=== PATIENT | female | born 1990 | race Caucasian/White ===

== ENCOUNTER 2017-10-11 15:42 | Outpatient (CLI) | payer OTHER ==
[2017-10-11] MEDS ORDERED: LACTATED RINGERS 500 ML IV ONE (16:07)
[2017-10-11 16:42] LABS: Hematocrit 33.1 % (30.3-42.9); Mean Corpuscular HGB Conc 33 % (30-34); Mean Corpuscular Hemoglobin 29 pg (28-32); Mean Corpuscular Volume 86 fl (79-97); Platelet Count 216 K/mm3 (140-440); Red Blood Count 3.85 M/mm3 (3.65-5.03); Red Cell Distribution Width 15.5 % (13.2-15.2)
[2017-10-11 16:43] LABS: Bilirubin,Urine NEG (Negative); Blood,Urine NEG (Negative); Calcium Oxalate Crystals,Urine 1+; Color,Urine Amber (Yellow); Mucus,Urine 3+ /HPF
[2017-10-11 16:58] LABS: Alanine Aminotransferase < 5 units/L (7-56)
[2017-10-11 17:30] VITALS: BP 115/80
== END 2017-10-11 18:00 | disposition home or self-care (01) ==
LOC: TRG 15:42
PROVIDERS: ATTEND Obstetrics & Gynecology
DX: O47.03 False labor before 37 completed weeks of gestation, third trimester (principal); Z3A.37 37 weeks gestation of pregnancy; Z88.0 Allergy status to penicillin; Z91.048 Other nonmedicinal substance allergy status
CPT/HCPCS: 36415; 59025; 81001; 82565; 83615; 84450; 84460; 84550; 85027

== ENCOUNTER 2017-10-13 22:15 | Emergency (ER) | payer OTHER ==
[2017-10-14] MEDS ORDERED: NACL 0.9% 1000 ML 1,000 ML IV ONE (00:10)
[2017-10-14] MEDS ORDERED: NORCO 5/325 PO ONE (00:10)
[2017-10-14 02:04] VITALS: BP 111/78
--- NOTE | 2017-10-14 03:05 | Emergency Department Report ---
HPI - General Chief Complaint: Headache Time Seen by Provider: 10/14/17 00:50 - HPI HPI: The patient is a 27-year-old female who presents for evaluation of toothache and headache. The patient reports right upper toothache for the past one week, achy in quality, moderate to severe, exacerbated with chewing and opening the mouth, and associated with a moderate in severity throbbing headache. The patient denies fever, head injury, facial swelling, neck pain, neck stiffness, throat pain, vision or hearing changes, smell or taste changes, paresthesias, facial drooping, slurred speech, seizure-like activity, urine or bowel incontinence or retention, or other focal neurological deficit. ED Past Medical Hx - Past Medical History Hx Hypertension: No Hx Diabetes: Yes Hx Deep Vein Thrombosis: No Hx Sickle Cell Disease: No Hx Seizures: Yes (as a child age 7) Hx Asthma: No Hx HIV: No - Social History Smoking Status: Never Smoker Substance Use Type: None - Medications Home Medications: Home Medications Medication Instructions Recorded Confirmed Last Taken Type Acetaminophen/Codeine [Tylenol #3] 1 tab PO Q6H PRN #5 tab 10/14/17 Unknown Rx cephALEXin [Keflex] 500 mg PO Q8HR 5 Days #15 cap 10/14/17 Unknown Rx ED Review of Systems ROS: Stated complaint: PAIN FACE/EAR/NECK Other details as noted in HPI Constitutional: denies: fever ENT: reports tooth pain denies: throat or neck pain Respiratory: denies: cough, shortness of breath Cardiovascular: denies: chest pain Endocrine: denies unexplained weight loss or gain Gastrointestinal: denies: abdominal pain, nausea Genitourinary: denies: dysuria Musculoskeletal: denies: leg swelling Skin: denies: rash Neurological: reports: headache Hematological/Lymphatic: denies: easy bleeding or easy bruising Psych: denies sadness or hopelessness Physical Exam - Physical Exam Vital Signs: Vital Signs 10/13/17 10/14/17 10/14/17 22:45 00:12 00:15 Temperature 98.3 F Pulse Rate 98 H 79 Respiratory 16 Rate Blood Pressure 109/80 99/69 Blood Pressure [Left] O2 Sat by Pulse 98 100 Oximetry 10/14/17 02:03 Temperature Pulse Rate 80 Respiratory 16 Rate Blood Pressure Blood Pressure 111/78 [Left] O2 Sat by Pulse 100 Oximetry Physical Exam: General: well-nourished, well-developed, no acute distress Head: Normocephalic, atraumatic Eyes: normal sclera ENT: Mucous membranes are pale and dry Neck: No neck stiffness, no cervical adenopathy Respiratory: Breath sounds equal bilaterally, no wheezing, rales, or rhonchi Cardio: S1 and S2 present, no murmurs, rubs, gallops, capillary refill is delayed Abdomen: Normoactive bowel sounds, soft abdomen, no rigidity, no guarding or rebound tenderness Chest WALL/Back: No tenderness to palpation of the chest wall, no CVA tenderness with percussion Musc: No pitting edema Skin: No rash Neuro: alert oriented x4, normal cognition, speech normal, PERRL, EOM intact, no facial drooping, no uvula or tongue deviation on protrusion, no deficit with rotation of neck or shoulder shrug, no obvious gross motor deficit in the upper or lower extremities with flexion or extension at the shoulder, elbow, wrist, hip, knee, or ankle bilaterally, no obvious gross sensation deficit to crude touch or 2 pt discrimination, 2+ symmetric reflexes on DTR testing, no coordination deficit with [id number] or [id number] testing, Babinski downgoing, romberg negative, patient able to to ambulate without abnormal gait Psych: Normal affect ED Course Vital Signs 10/13/17 10/14/17 10/14/17 22:45 00:12 00:15 Temperature 98.3 F Pulse Rate 98 H 79 Respiratory 16 Rate Blood Pressure 109/80 99/69 Blood Pressure [Left] O2 Sat by Pulse 98 100 Oximetry 10/14/17 02:03 Temperature Pulse Rate 80 Respiratory 16 Rate Blood Pressure Blood Pressure 111/78 [Left] O2 Sat by Pulse 100 Oximetry ED Medical Decision Making - Medical Decision Making The patient was seen and examined by myself. The patient is placed on a court recording monitor and continuous pulse ox. On initial evaluation, the patient was found to be in no distress. Evaluation orders were placed. As there are no neuro deficits or other findings on examination concerning for acute intracranial disease process, and as the patient states that symptoms are consistent with previous headaches, a CAT scan of the head will not be obtained at this time. The patient was given a tablet of Tylenol 3 for pain. The patient was reevaluated and reported that their symptoms were markedly improved. The patient is stable for discharge with outpatient follow-up. The patient is given follow-up and return instructions. The patient expressed understanding and agreed with the plan. The patient is discharged in stable condition. Critical care attestation.: If time is entered above; I have spent that time in minutes in the direct care of this critically ill patient, excluding procedure time. ED Disposition Clinical Impression: Acute non intractable tension-type headache, Toothache Disposition: TO HOME OR SELFCARE Is pt being admited?: No Does the pt Need Aspirin: No Condition: Stable Instructions: Acute Headache (ED), Toothache (ED) Prescriptions: Acetaminophen/Codeine [Tylenol #3] 1 tab PO Q6H PRN #5 tab PRN Reason: Pain cephALEXin [Keflex] 500 mg PO Q8HR 5 Days #15 cap Referrals: ROGER ALFONSO MD [Staff Physician] - 3-5 Days [facility] [Provider Group] - 3-5 Days Time of Disposition: 02:54
== END 2017-10-14 03:39 | disposition home or self-care (01) ==
LOC: ED 22:15
DX: G44.209 Tension-type headache, unspecified, not intractable (principal); K08.89 Other specified disorders of teeth and supporting structures; E11.9 Type 2 diabetes mellitus without complications; Z88.4 Allergy status to anesthetic agent; Z88.0 Allergy status to penicillin; Z91.09 Other allergy status, other than to drugs and biological substances
CPT/HCPCS: 99283

== ENCOUNTER 2017-10-18 09:39 | Outpatient (CLI) | payer OTHER ==
--- NOTE | 2017-10-18 10:59 | History and Physical Report ---
History of Present Illness Date of examination: 10/18/17 Chief complaint: Weakness of left side of her face since yesterday History of present illness: 27-year-old at 38+0 weeks presents with weakness of the right side of her face 24 hours now, no associated weakness of her extremities. She is a [employer] patient and care has been complicated by type 1 diabetes, migraine headaches status post negative CT scan head in the emergency room on , recent episode of bilateral ear infections. In triage, she is afebrile with normal blood pressure. Infant is category 1, no vaginal bleeding, no loss of fluid no contractions plus movement She is status post 2 prior C-sections Past History Past Medical History: diabetes, neurologic Past Surgical History: tonsillectomy, section (# 2) Social history: full code - Obstetrical History Expected Date of Delivery: 11/01/17 Actual Gestation: 38 Week(s) 0 Day(s) : 5 Para: 2 Medications and Allergies Allergies Allergy/AdvReac Type Severity Reaction Status Date / Time Penicillins Allergy Severe Hives Verified 10/11/17 16:03 clonazepam [From Klonopin] Allergy Intermediate Dizziness Verified 10/11/17 16: 04 silver Allergy Mild Itching Verified 10/11/17 16:06 [From Tegaderm AG Mesh] Home Medications Medication Instructions Recorded Confirmed Last Taken Type Acetaminophen/Codeine [Tylenol #3] 1 tab PO Q6H PRN #5 tab 10/14/17 Unknown Rx cephALEXin [Keflex] 500 mg PO Q8HR 5 Days #15 cap 10/14/17 Unknown Rx Review of Systems Constitutional: no fever, no chills, no weakness Cardiovascular: no chest pain, no orthopnea, no lightheadedness, no shortness of breath, no dyspnea on exertion, no high blood pressure Respiratory: no cough, no shortness of breath, no dyspnea on exertion Gastrointestinal: no abdominal pain, no nausea, no vomiting, no heartburn Genitourinary: no vaginal bleeding, no vaginal discharge, no leakage of fluid, no pelvic pain, no contractions - Vital Signs Vital signs: Vital Signs Pulse BP 98 H 114/66 10/18/17 09:52 10/18/17 09:52 Temp Pulse Resp BP Pulse Ox 107 H 118/72 10/18/17 10:40 10/18/17 10:40 - Physical Exam Cardiovascular: Regular rate, Normal S1, Normal S2 Lungs: Positive: Clear to auscultation, Normal air movement Abdomen: Positive: normal appearance, soft. Negative: distention, tenderness, guarding, rigidity Uterus: Positive: enlarged (EFW ~ 3500). Negative: tender Adnexa: both: normal Extremities: Positive: normal, other (normal power and sensation all extremities ) Deep Tendon Reflex Grade: Normal +2 Results All other labs normal. Assessment and Plan A: 27-year-old at 38 weeks with -related facial palsy -Cat 1 tracing P: -Discussed patient with Dr. Sheridan of neurology. He recommends Valtrex and low-dose steroids 5 days -Will prescribe Fioricet for her headache -Will discharge home to follow up for her repeat scheduled this Tuesday -Discussed warning signs to proceed to the emergency room GARY including progressive weakness of her limbs or extremities, severe intractable headache, vaginal bleeding or leaking fluid or decreased movement. 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
[2017-10-18 11:12] VITALS: BP 128/81
== END 2017-10-18 11:50 | disposition home or self-care (01) ==
LOC: TRG 09:39
PROVIDERS: ATTEND Obstetrics & Gynecology
DX: O47.1 False labor at or after 37 completed weeks of gestation (principal); O99.283 Endocrine, nutritional and metabolic diseases complicating pregnancy, third trimester; E03.9 Hypothyroidism, unspecified; Z3A.38 38 weeks gestation of pregnancy
CPT/HCPCS: 59025